=== PATIENT | male | born 1975 | race Caucasian/White ===

== ENCOUNTER 2021-01-08 11:36 | Emergency (ER) | payer OTHER ==
[~2021-01-08] VITALS: Ht 185.4 cm; Wt 108.0 kg
[~2021-01-08 11:36] MED LIST: CITA20TA6 PO; DOCU-109 PO; HYDR-2679 PO; LISI-130 PO; METH-38 PO
[2021-01-08] MEDS ORDERED: ORPHENADRINE CITRATE 60 MG/2 ML VIAL. IM ONE (12:30)
[2021-01-08] MEDS ORDERED: KETOROLAC 60 MG/2 ML VIAL. IM ONE (12:30)
[2021-01-08 12:31] VITALS: BP 156/93
--- NOTE | 2021-01-08 13:44 | RAD ---
Axial noncontrast CT imaging of the lumbar spine was obtained. Coronal and sagittal reformats are rudi ilable. INDICATION: Back pain down right leg for 2 weeks. COMPARISON: None. FINDINGS: There is no fracture. There is normal alignment of the lumbar spine. There are partially calcified di sc bulge is seen at L2-3 L3-for L4-5 and L5-S1. These all appear relatively broad-based and causes at least mild if not moderate foraminal stenosis as well as mild to moderate stenosis of the central ca nal. The partially visualized soft tissues are unremarkable in appearance. There is moderate distention ur inary bladder. IMPRESSION: 1. Partially calcified broad-based disc bulges at multiple levels are identified. Nonemergent MRI is recommended for further evaluation given the presence of radicular symptoms. Exposure: One or more of the following individualized dose reduction techniques were utilized for thi s examination: 1. Automated exposure control 2. Adjustment of the mA and/or kV according to patient size 3. Use of iterative reconstruction technique Electronically signed by: Mohsen English MD (01/08/2021 1:42 PM) [id number]
[2021-01-08] MEDS ORDERED: PRED20TA PO (13:58)
[2021-01-08] MEDS ORDERED: CYCL10TA2 PO (13:58)
--- NOTE | 2021-01-08 13:59 | ED.ADGEN ---
Past Medical History Past Medical History: Hypertension Past Surgical History: Other Additional Past Surgical Histo: LOWER BACK SX, 2015 Smoking Status: Former Smoker Alcohol Use: Occasionally General Adult EDM: Chief Complaint: BACK PAIN OR INJURY HPI: HPI: Patient is a 45 year old male who presents emergency department complaints of right-sided low back pain that radiates into his right leg with movement. He reports his back pain began about 2 weeks ago, he denies any injury or fall triggered the back pain. Patient reports prior back surgery several years ago by Dr. Farhta Leach. He denies any saddle anesthesia, or loss of bowel/bladder control. Patient denies any numbness, tingling, or decreased sensation of his lower extremities. He states that yesterday the pain was so severe it caused his right leg to give out. He currently rates the pain a 6 out of 10 on the pain scale, the pain increases to 8-10 out of pain with movement. He denies any abdominal pain, fever, dysuria, hematuria, or increased urinary frequency. Patient reports that he has had some difficulty initiating his stream of urine since the increase in the back pain. Review of Systems: Review of Systems: Complete ROS is negative unless otherwise noted in HPI. Current Medications: Current Medications Medications (Trade) Dose Ordered Sig/[facility] Start Time Stop Time Status Last Admin Dose Admin Ketorolac Tromethamine (Toradol Im) 60 mg 1X ONCE 01/08/21 12:30 01/08/21 12:35 DC 01/08/21 12:41 60 MG Orphenadrine Citrate (Norflex) 60 mg 1X ONCE 01/08/21 12:30 01/08/21 12:35 DC 01/08/21 12:41 60 MG Allergies: Allergies: Allergies Coded Allergies Type Severity Reaction Last Updated Verified No Known Drug Allergies 10/20/14 No Physical Exam: PE: See Above Constitutional: Well developed, well nourished, no acute distress, non-toxic appearance. [] HENT: Normocephalic, atraumatic, bilateral external ears normal, nose normal. [] Eyes: PERRLA, EOMI, conjunctiva normal, no discharge. [] Neck: Normal range of motion, no stridor. [] Cardiovascular:Heart rate regular rhythm Lungs & Thorax: Respirations even and unlabored, no retractions, no respiratory distress Back: No bony tenderness, crepitus, or step-off. Right lumbar paraspinal tenderness to palpation, increased pain with right straight leg lift, Skin: Warm, dry, no erythema, no rash. [] Extremities: No cyanosis, ROM intact, no edema. [] Neurologic: Alert and oriented X 3, normal motor, normal sensation, no focal deficits noted. [] Psychologic: Affect normal, judgement normal, mood normal. [] Current Patient Data: Vital Signs: Vital Signs Date Time Temp Pulse Resp B/P (MAP) Pulse Ox O2 Delivery O2 Flow Rate FiO2 01/08/21 12:31 98.0 68 12 156/93 (114) 98 Room Air 98.0 EKG: EKG: [] Heart Score: C/O Chest Pain: No Risk Scores: Score 0 - 3: 2.5% MACE over next 6 weeks - Discharge Home Score 4 - 6: 20.3% MACE over next 6 weeks - Admit for Clinical Observation Score 7 - 10: 72.7% MACE over next 6 weeks - Early Invasive Strategies Radiology/Procedures: Radiology/Procedures: PROCEDURE: CT LUMBAR SPINE WO CONTRAST Axial noncontrast CT imaging of the lumbar spine was obtained. Coronal and sagittal reformats are available. INDICATION: Back pain down right leg for 2 weeks. COMPARISON: None. FINDINGS: There is no fracture. There is normal alignment of the lumbar spine. There are partially calcified disc bulge is seen at L2-3 L3-for L4-5 and L5-S1. These all appear relatively broad-based and causes at least mild if not moderate foraminal stenosis as well as mild to moderate stenosis of the central canal. The partially visualized soft tissues are unremarkable in appearance. There is moderate distention urinary bladder. IMPRESSION: 1. Partially calcified broad-based disc bulges at multiple levels are identified. Nonemergent MRI is recommended for further evaluation given the presence of radicular symptoms. Exposure: One or more of the following individualized dose reduction techniques were utilized for this examination: 1. Automated exposure control 2. Adjustment of the mA and/or kV according to patient size 3. Use of iterative reconstruction technique Electronically signed by: Mohsen English MD (01/08/2021 1:42 PM) [id number] [] Course & Med Decision Making: Course & Med Decision Making Pertinent Labs and Imaging studies reviewed. (See chart for details) [] Dragon Disclaimer: Dragon Disclaimer: This electronic medical record was generated, in whole or in part, using a voice recognition dictation system. Departure Departure Impression: Primary Impression: Low back pain Additional Impression: Bulging discs Disposition: HOME / SELF CARE / HOMELESS Condition: STABLE Referrals: LUIS CARLOS WILLOUGHBY (PCP) FARHAT ROBERTS MD Patient Instructions: Back Pain, Adult, [id number] Additional Instructions: Fill the prescription(s) and use as directed. Apply heat or ice for to sore areas as needed for comfort. Activity as tolerated. Follow up with your primary care doctor or Dr. Roberts next week, return to the ER if symptoms worsen or you develop a fever. Scripts Cyclobenzaprine Hcl (CYCLOBENZAPRINE HCL) 10 Mg Tablet 1 TAB PO TID PRN for MUSCLE PAIN for 10 Days, #30 TAB 0 Refills Prov: COY LEONARD SEROLOGY TEACHER 01/08/21 Prednisone (PREDNISONE) 20 Mg Tablet 1 TAB PO UD for 12 Days, #15 TAB 2 tabs by mouth days 1,2,3 then 1.5 tabs by mouth days 4,5,6 then 1 tab by mouth days 7,8,9 then 0.5 tab by mouth day 10,11,12 Prov: COY LENOARD SEROLOGY TEACHER 01/08/21 Problem Qualifiers Primary Impression: Low back pain Chronicity: acute Back pain laterality: right Sciatica presence: with sciatica Sciatica laterality: sciatica of right side Qualified Codes: M54.41 - Lumbago with sciatica, right side COY LEONARD SEROLOGY TEACHER January 08, 2021 13:59
[2021-01-08] MEDS ORDERED: predniSONE 10 MG TABLET PO ONE (14:00)
[2021-01-08] MEDS ORDERED: predniSONE 10 MG TABLET ONE (14:00)
== END 2021-01-08 14:11 | disposition home or self-care (01) ==
LOC: ER 11:36
DX: M54.41 Lumbago with sciatica, right side (principal); I10 Essential (primary) hypertension; Z87.891 Personal history of nicotine dependence
CPT/HCPCS: 72131; 96372; 99284; J1885; J2360; J7512

== ENCOUNTER → 2021-02-15 | Outpatient (CLI) | payer OTHER ==
[~2021-02-15] MED LIST changes: +CYCL10TA2 PO; +HYDR-2761 PO; +METH-562 PO; +METO-247 PO; +PRED20TA PO
--- NOTE | 2021-02-15 13:27 | EKG ---
[facility] [address] [place] [address] Test Date: 2021-02-15 Test Time: 13:22:37 Pat Name: MICHAEL DIGGS Department: Room: Gender: M Wound Care Technician: : 1975 Requested By: MAREN ROBERTS Order Number: [id number] Reading MD: Levi Craig MD Measurements Intervals [place] Rate: 54 P: MN: QRS: 43 QRSD: 94 T: 46 QT: 408 QTc: 392 Interpretive Statements SINUS BRADYCARDIA Electronically Signed On 02-16-2021 10:49:06 CDT by Levi Craig MD
[2021-02-15 13:40] LABS: BASO # 0.1 x10^3/uL (0.0-0.2); BASO % 2 % (0-3); EOS # 0.3 x10^3/uL (0.0-0.7); EOS % 4 % (0-3); HEMATOCRIT 43.9 % (39.0-53.0); HEMOGLOBIN 15.5 g/dL (13.0-17.5); LYMPH # 1.9 x10^3/uL (1.0-4.8); LYMPH % 32 % (24-48); MEAN CORPUSCULAR HEMOGLOBIN 32 pg (25-35); MEAN CORPUSCULAR HGB CONC 35 g/dL (31-37); MEAN CORPUSCULAR VOLUME 90 fL (79-100); MONO # 0.7 x10^3/uL (0.0-1.1); MONO % 11 % (0-9); NEUT # 3.1 x10^3/uL (1.8-7.7); NEUT % 51 % (31-73); PLATELET COUNT 233 x10^3/uL (140-400); RED BLOOD COUNT 4.87 x10^6/uL (4.30-5.70); RED CELL DISTRIBUTION WIDTH 13.5 % (11.5-14.5); WHITE BLOOD COUNT 6.1 x10^3/uL (4.0-11.0)
[2021-02-15 13:43] LABS: ALBUMIN 4.1 g/dL (3.4-5.0); ALBUMIN/GLOBULIN RATIO 1.2 (1.0-1.7); CREATININE 0.8 mg/dL (0.7-1.3); TOTAL BILIRUBIN 0.6 mg/dL (0.2-1.0); TOTAL PROTEIN 7.4 g/dL (6.4-8.2)
== END ==
LOC: SURGPAT 12:17
PROVIDERS: ATTEND Neurological Surgery
DX: Z01.818 Encounter for other preprocedural examination (principal); M51.16 Intervertebral disc disorders with radiculopathy, lumbar region; R00.1 Bradycardia, unspecified
CPT/HCPCS: 36415; 80053; 85025; 87641; 93005

== ENCOUNTER 2021-02-19 07:25 | Day surgery (SDC) | payer OTHER ==
[2021-02-15 12:55] VITALS: BP 148/85
--- NOTE | 2021-02-18 16:32 | PREOP HP ---
DATE OF SERVICE: 02/19/2021 HISTORY OF PRESENT ILLNESS: The patient is a pleasant 45-year-old. He is having problems with neck and left arm pain and had neural foraminal narrowing on the left at C6-7. I referred him for cervical epidural steroid injections, but because of his vaccination, this was delayed and by the time he went to have the injection, the pain had improved markedly. He says he continues to notice spasms in his left triceps, but there is no significant pain or weakness. On 01/08, he said that he developed severe pain in his lower back and right leg to the point he went to the Emergency Room. He said that the problem started spontaneously. He was given steroids and over time, the pain has improved to a degree. However, he notes significant weakness in his right leg. He said that yesterday while barbecuing, his right quadriceps gave out and he fell. He notes weakness in his right quadriceps along with numbness in the right anterior thigh and anterior leg. He is not able to work because of leg weakness. CURRENT MEDICATIONS: Lisinopril, [place]. PAST MEDICAL HISTORY: Hypertension. PAST SURGICAL HISTORY: Lumbar microsurgery at L3-4 on the left in 2015 and bariatric surgery in 2019. FAMILY HISTORY: Cancer, coronary artery disease, hypertension, diabetes. SOCIAL HISTORY: Employed at [employer]. , nonsmoker, drinks alcohol 1-2 times per week. ALLERGIES: No known drug allergies. REVIEW OF SYSTEMS: A 12-point review of systems was performed and is noncontributory except that mentioned above. PHYSICAL EXAMINATION: GENERAL: Alert, pleasant, in no acute distress. HEENT: Head normocephalic, atraumatic. SKIN: Warm and dry. Well-healed lumbar incision. MUSCULOSKELETAL: Lumbar paraspinal muscle bulk is normal, restricted range of motion of the lumbar spine, [id number] tenderness of the lower lumbar spine with palpation, normal range of motion of the lower extremities bilaterally. EXTREMITIES: No clubbing, cyanosis or edema. NEUROLOGIC: Alert and oriented x 3. Normal recent and remote memory. Strength is 5/5 in the lower extremities except for right quadriceps which is 4/5 and right hip flexor which was 4/5. Sensory was intact to light touch in the lower extremities bilaterally except for decreased sensation with light touch involving the distal anterior thigh, knee and anterior leg on the right. Reflexes were present and symmetric in the lower extremities except for an absent right knee jerk. Negative straight leg raising bilaterally. Normal gait. IMAGING: I reviewed a lumbar MRI scan. On that study, the principal abnormality is a large disk herniation at L3-4 on the right side, which is in the right lateral recess. The disk extrusion extends inferiorly along the medial side of the pedicle extending all the way down to the neural foramen and deviating the right L3 nerve root markedly. At L2-3, there is a disk protrusion, which is central and extends eccentrically toward the right side. There is flattening of the ventral thecal sac. However, I do not see evidence of compression. ASSESSMENT AND PLAN: The patient has a large disk herniation with an inferior extrusion at L3-4 on the right along with quadriceps weakness. He is unable to work. I recommended lumbar microsurgery at L3-4 on the right to decompress the dura and the nerve root and remove the large disk herniation. I spoke with him about this in detail. He understands the rationale for surgery and the risk as well as the expected postoperative course. I went through the technique of the surgery. I discussed this with him and his . They understand and would like to proceed. YANICK/LUBNA/FIDELIA DR: Gretchen TID: [id number]
[~2021-02-19] VITALS: Ht 185.4 cm; Wt 108.0 kg
[~2021-02-19 07:25] MED LIST changes: +BUPIVACAINE-EPI 0.5%-1:200000 MPF 30 ML VIAL. ONE; +GELATIN SPONGE SIZE 100. ONE; -HYDR-2761 PO; +HYDROmorphone 2 MG/ML VIAL IVP PRN; +IV RINGERS,LACTATED 1000ML 1,000 ML IV SCH; +KETOROLAC 60 MG/2 ML VIAL. ONE; +LIDOCAINE 2% PF 5 ML VIAL. ONE; -METH-562 PO; +MIDAZOLAM HCL/PF 2 MG/2 ML VIAL. ONE; +MORPHINE SULFATE 2 MG/ML VIAL. IVP PRN; +PROCHLORPERAZINE 10 MG/2 ML VIAL. IVP PRN; +PROPOFOL 10 MG/ML (20ML) VIAL. IV ONE; +PROPOFOL 100 ML IV ONE; +REMIFENTANIL 2 MG VIAL. IV ONE; +ROCURONIUM 50 MG/5 ML VIAL. ONE; +THROMBIN TOPICAL 20,000 UNIT SPRAY.SYRN KIT TP ONE; +fentaNYL PF VIAL 100 MCG/2 ML VIAL IVP PRN; +fentaNYL PF VIAL 100 MCG/2 ML VIAL ONE
[2021-02-19 07:46] VITALS: BP 165/84
[2021-02-19] MEDS ORDERED: DEXAMETHASONE SOD PHOS 4 MG/ML VIAL ONE (09:31)
[2021-02-19] MEDS ORDERED: ONDANSETRON PF 4 MG/2 ML VIAL. ONE (09:31)
[2021-02-19] MEDS ORDERED: SEVOFLURANE > 120 MINUTES. IH ONE (09:31)
[2021-02-19] MEDS ORDERED: NEOSTIGMINE METHYLSULFATE 5 MG/5 ML SYRINGE. ONE (09:32)
[2021-02-19] MEDS ORDERED: GLYCOPYRROLATE 1 MG/5 ML VIAL. ONE (09:32)
[2021-02-19] MEDS ORDERED: PHENYLEPHRINE 10 MG/ML VIAL. ONE (10:16)
[2021-02-19] MEDS ORDERED: fentaNYL PF VIAL 100 MCG/2 ML VIAL ONE (11:29)
--- NOTE | 2021-02-19 11:44 | OP ---
DATE OF SURGERY: 02/19/2021 PREOPERATIVE DIAGNOSIS: Recurrent herniated lumbar disc, L3-L4, right with severe right lumbar radiculopathy. POSTOPERATIVE DIAGNOSIS: Recurrent herniated lumbar disc, L3-L4, right with severe right lumbar radiculopathy. OPERATION PERFORMED: Hemilaminotomy and microdiscectomy L3-L4, right reoperation. Operation was done with EMG monitoring, SSEP monitoring, fluoroscopy, microscopic dissection. SURGEON: Farhat Paige M.D. OPERATIVE INDICATION: The patient is a very pleasant 45-year-old who in the past had undergone surgery at L3-L4 for herniated disc and did very well. He then developed recurrent pain, which has failed to resolve with conservative measures. On imaging studies, there was a large disc herniation at L3-L4 on the right with a large inferior fragment. I recommended lumbar microsurgery. I spoke with him about the surgery, the risks, technique and expected postoperative course, and he wished to go ahead. In addition to the pain, he had leg weakness on the right side. SPECIMEN: Disc and decompression. DESCRIPTION OF PROCEDURE: Following general endotracheal anesthesia, the patient was positioned prone on the Zackery table. His lumbar region was prepped and draped in standard fashion. JUAN M hose and AV impulse boots were applied for DVT prophylaxis. The microscope was draped, fluoroscopy was draped and brought in the field. Monitoring was established. Ancef 2 grams was given less than one hour prior to initiation of the surgery. Using fluoroscopic guidance and screws, incision was reopened. I did carry this slightly farther superiorly directly over the disc space dissected down through skin and subcutaneous tissue, reflected the paraspinal muscles and placed a Dale microdisk retractor. I brought in the microscope and the remainder of surgery was done with microscope using microscopic technique. I burred down a generous hemilaminotomy and then trimmed away thickened ligamentum flavum. I followed the exiting root considered for a considerable distance around the pedicle and into the exit/foramen at L3-4 and beneath the root, I could visualize the extruded disc fragment. I gently grasped the disc fragment with micropituitaries over the midportion of the pedicle and gently teased and removed a very large piece of extruded disc and it was removed completely. I then worked inferiorly and continued to tease, remove this large disc herniation. This was accomplished, the nerve root was quite free. I did enter the disc space and performed discectomy with pituitary rongeurs. I explored carefully. There were no retained fragments. I felt the surgery went very well, as far as removal of the disc, decompression of the root. I irrigated copiously. Hemostasis was excellent. I removed the retractor, obtained hemostasis in the muscle. Again irrigated and then I closed the wound with absorbable sutures. The skin was closed with a 4-0 subcuticular stitch. The surgery went very well. MARIO/MAICO DR: Sonja TID: [id number] DEJAH
[2021-02-19] MEDS ORDERED: HYDR-2761 PO (11:51)
[2021-02-19] MEDS ORDERED: DOCU-109 PO (11:51)
[2021-02-19] MEDS ORDERED: METH-562 PO (11:51)
--- NOTE | 2021-02-19 11:52 | DISCH ---
DISCHARGE INSTRUCTIONS Condition on Discharge Condition on Discharge: Stable Activity After Discharge Activity Instructions for Disc: Activity as tolerated, Avoid exertion Other activity instructions: no driving for a week Bathing Instructions: Shower-keep dressing dry, No Tub Bath until see Lifting Instructions after Dis: No heavy lifting, No pulling or pushing, Do not lift >10 pounds Diet after Discharge Diet after Discharge: Regular Additional Diet Restrictions: resume home diet Wound Incision Care Wound/Incision Care: Ice to area for comfort Other wound/incision instructi: may rmove dressing in 48 hours if dry then may shower, no soaking Contacting the after DC Call your doctor for: Concerns you may have Follow-Up Follow up with: Dr. Roberts's nurse in 2 weeks [phone] MAREN ROBERTS MD Feb 19, 2021 11:52
[2021-02-19 12:17] VITALS: BP 151/81
[2021-02-19] MEDS ORDERED: HYDROcodone/APAP 5/325MG 1 TAB TABLET ONE (12:19)
[2021-02-19] MEDS ORDERED: HYDROcodone/APAP 5/325MG 1 TAB TABLET PO ONE (12:30)
--- NOTE | 2021-02-22 19:18 | PATHOLOGY ---
[facility] Accession Number: [id number] . 01 Material submitted: . vertebral column - LUMBAR DISC AND DECOMPRESSION. Modifiers: LUMBAR . 01 Clinical history: . LUMBAR HERNIATED DISC WITH RADICULOPATHY LUMBAR MICRODISCECTOMY L3-4 RE-OPERATION . . 02 Diagnosis: Segments of fibrocartilaginous, adipose, and skeletal muscle tissue and bone, lumbar disc and decompression: - Degenerative changes of fibrocartilaginous tissue. (JPM:perico; 02/22/2021) S 02/22/2021 1809 Local . 02 Comment: There is no evidence of an acute inflammatory process or malignancy. (JPM:perico; 02/22/2021) . 02 Electronically signed: . Vasyl Lazaro MD, Pathologist NPI- [id number] . 01 Gross description: . Received in formalin labeled "Sidney Saldana, lumbar disc and decompression" are multiple irregular, blevins brown fragments of soft tissue and bone measuring in aggregate 5.4 x 3.1 x 1.7 cm. The specimen is serially sectioned to reveal a blevins-brown focally gritty cut surface. Photocomposing Machine Operator section of the specimen are submitted without decalcification in cassette A1.([facility]; 02/20/2021) GZA/GZA 02/20/2021 1048 Local . 02 Pathologist provided ICD-10: M51.36 . 02 CPT . 070373, [id number] Specimen Comment: A courtesy copy of this report has been sent to [phone], [phone] Specimen Comment: [id number] Specimen Comment: Report sent to / DR WILLOUGHBY Specimen Comment: A duplicate report has been generated due to demographic updates. Performed at: [address] [facility] [address], [place] [id number] MD Junito Pacheco MD Phone: [phone] Performed at: 02 [facility] [address] [place], [place] [id number] MD Vasyl Lazaro MD Phone: [phone]
== END 2021-02-19 13:22 | disposition home or self-care (01) ==
LOC: SURG 07:25
PROVIDERS: ATTEND Neurological Surgery
DX: M51.16 Intervertebral disc disorders with radiculopathy, lumbar region (principal); I10 Essential (primary) hypertension; Z79.899 Other long term (current) drug therapy; Z98.890 Other specified postprocedural states; Z72.89 Other problems related to lifestyle; Z87.891 Personal history of nicotine dependence
CPT/HCPCS: 63042; 88304; 88311; 97116; 97162; 97530; A4364; A4930; A6254; A6258; J0690; J1100; J1885; J2370; J2405; J2704; J2710; J3010; J3490; 76000; A4222; J2250

== ENCOUNTER → 2021-12-21 | Outpatient (CLI) | payer OTHER ==
[~2021-12-21] MED LIST changes: -BUPIVACAINE-EPI 0.5%-1:200000 MPF 30 ML VIAL. ONE; +CYCL10TA19 PO; -CYCL10TA2 PO; -GELATIN SPONGE SIZE 100. ONE; +HYDR-2761 PO; -HYDROmorphone 2 MG/ML VIAL IVP PRN; -IV RINGERS,LACTATED 1000ML 1,000 ML IV SCH; -KETOROLAC 60 MG/2 ML VIAL. ONE; -LIDOCAINE 2% PF 5 ML VIAL. ONE; +METH-562 PO; +METH4TAB2 PO; -MIDAZOLAM HCL/PF 2 MG/2 ML VIAL. ONE; -MORPHINE SULFATE 2 MG/ML VIAL. IVP PRN; +OXYC1TAB15 PO; -PROCHLORPERAZINE 10 MG/2 ML VIAL. IVP PRN; -PROPOFOL 10 MG/ML (20ML) VIAL. IV ONE; -PROPOFOL 100 ML IV ONE; -REMIFENTANIL 2 MG VIAL. IV ONE; -ROCURONIUM 50 MG/5 ML VIAL. ONE; -THROMBIN TOPICAL 20,000 UNIT SPRAY.SYRN KIT TP ONE; -fentaNYL PF VIAL 100 MCG/2 ML VIAL IVP PRN; -fentaNYL PF VIAL 100 MCG/2 ML VIAL ONE
--- NOTE | 2021-12-21 15:49 | PDOC1 ---
INITIAL PAIN CONSULT DATE OF SERVICE: DOS: DATE: 12/21/21 TIME: 15:42 CHIEF COMPLAINT: Chief Complaint: Neck and left upper extremity pain HISTORY OF PRESENT ILLNESS: 46-year-old male presents with history of pain base the neck left upper extremity for about 3months already relates a story about a year ago he had similar symptoms but they got better with some physical therapy and stretching and strengthening patient reports he has been doing the physical therapy now recently with stretching and strengthening exercises as well on his own but without significant reduction in pain patient reports the pain is increased in the base of the neck left shoulder left scapular region also into the posterior deltoid anterior deltoid lateral deltoid, into the biceps triceps and into the forearm and into the thumb and first finger with some numbness and tingling in the hand patient reports some fatigability of the left upper extremity has not been dropping items or had any complete motor loss but has significant fatigability with left upper extremity with fine motor movements as well as reaching weightbearing repetitive motions reaching over his head with his left arm and reaching forward with weightbearing as well. Patient reports is tingling and numb in the hand on the left side sharp stabbing and constant in the base of the neck and shoulder reports it wakes him to sleep about 4 times a night does not affect his bowel bladder control or ability to walk again he has been doing physical therapy stretching strength exercises as well as taking hydrocodone also ibuprofen and Tylenol without significant reduction in pain. 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 Patient have an MRI scan of the cervical spine showing C5-6 and moderate diffuse posterior disc bulge slightly larger to the right of midline contact and minimally effacing the ventral cord C6-7 shows moderate degenerative loss of disc height large broad-based left lateral recess disc protrusion contacting the ventral cord and causing mild appearing deflection or effacement of the ventral cord and left lateral recess is probably narrowed in the most medial aspect of the left foramen and mildly effaced. Patient reports no loss of function but again significant fatigability with left upper extremity with any repetitive motion. PAST MEDICAL HISTORY: PMH: Hypertension PREVIOUS SURGERIES: Past Surgical Hx: Lumbar laminectomy x2 CURRENT MEDICATIONS: Current Meds: Active Scripts Medications Dose Route/Sig Max Daily Dose Days Date Category Citalopram Hbr (Citalopram Hydrobromide) 20 Mg Tablet 1 Tab PO DAILY 12/21/21 Reported Hydrocodone-Apap 5-325 (Hydrocodone Bit/Acetaminophen) 1 Tab Tablet 1 Tab PO PRN Q6HRS PRN 02/19/21 Rx Metoprolol Succinate ( Xl ) (Metoprolol Succinate) 100 Mg Tab.er.24h 1 Tab PO DAILY 02/15/21 Reported ALLERGIES; Allergies: Coded Allergies: No Known Drug Allergies (Unverified , 02/19/21) FAMILY HISTORY: Family Hx: Cancers SOCIAL HISTORY: Social Hx: Patient drinks alcohol about 2 drinks twice a week does not smoke not use any illegal illicit or recreational drugs is lives with his spouse has 3 children live at home lives locally and works for the [employer]. REVIEW OF SYSTEMS: ROS: Positive for those items mentioned in history of present illness, all systems are reviewed, otherwise negative ,and are complete full and well-documented on patient's chart. PHYSICAL EXAM: VS: Blood pressure is 164/107 pulse 76 respirations 18 temperature is 98.7 F height is 6 feet 1 inch weight is 247 pounds. PE: PHYSICAL EXAMINATION: GENERAL: The patient is awake, alert, oriented, appropriate, very pleasant in demeanor HEENT: Shows normocephalic, atraumatic. Extraocular movements are intact and symmetrical. Oral cavity: Mucous membranes moist and pink. Dentition is intact. NECK: Shows anterior throat supple without palpable lymphadenopathy noted. Swallow reflex symmetrical. CHEST: Shows normal on inspection. Breath sounds are clear bilaterally, no rales rhonchi or wheezes auscultated. HEART: Shows S1, S2 clear. No murmurs auscultated. ABDOMEN: Soft, nontender, nondistended. No palpable organomegaly is noted. BACK: Shows spine grossly in the midline. Normal-appearing cervical lordotic curvature. Cervical paraspinous muscles show symmetrical inspection, on palpation some moderate tenderness diffusely bilaterally diffusely without si gnificant radiation. Patient shows good rotation of motion cervical spine with some moderate tenderness with left lateral rotation and significant tenderness with extension but not with forward flexion which likely decreases the pain. There is slightly increased thoracic kyphosis, some minor flattening of the lumbar lordotic curvature. EXTREMITIES: Upper extremities show deep tendon reflexes 2+ in the patellar and tendo calcaneus tendons. Motor exam is 5 on a scale of 5 with right dorsiflexion, extension, quadriceps and hamstring flexion and 4/5 on the left. Peripheral pulses are 2 posterior tibial. No peripheral edema is noted bilaterally. Upper extremities are warm and dry to touch, equal in color and appearance. Shoulder shrug strong intact without loss of strength on resistance as is abduction of the shoulder 90 degrees without loss strength bilaterally. SKIN: Shows warm and dry, good turgor. No edema. No sores, rashes or bruising throughout. IMPRESSION: Impression: 46-year-old male with long history of pain base of neck left upper extremity worse over the past 3 months or so and radicular fashion following a C6-7 dermatomal distribution on the left. MRI scan cervical spine as noted hypertension as well as heat and cold application as currently. Plan: Options were discussed with the patient including serve medical managements continued physical therapies and interventional techniques. Patient like to pursue interventional techniques. We discussed a cervical epidural steroid injection using descriptions as well as anatomical models to describe the procedure. Patient will wait for preauthorization with his insurance provider once obtained. We will have patient return for translaminar approach C6-7 level cervical epidural steroid injection with fluoroscopic guidance in the meantime patient continue with stretching strength exercises oral analgesics as well as heat and cold application as currently. RADHA MAGALLANES MD Dec 21, 2021 15:49
== END | disposition home or self-care (01) ==
LOC: PNCL 14:26
PROVIDERS: ATTEND Anesthesiology
DX: M79.602 Pain in left arm (principal); M54.2 Cervicalgia; I10 Essential (primary) hypertension; Z87.891 Personal history of nicotine dependence; Z79.899 Other long term (current) drug therapy; Z98.890 Other specified postprocedural states; Z72.89 Other problems related to lifestyle
CPT/HCPCS: G0463

== ENCOUNTER 2021-12-28 10:50 | Emergency (ER) | payer OTHER ==
[~2021-12-28] VITALS: Ht 185.4 cm; Wt 109.2 kg
[~2021-12-28 10:50] MED LIST changes: -METH4TAB2 PO; -OXYC1TAB15 PO
[2021-12-28] MEDS ORDERED: MORPHINE SULFATE 4 MG/ML INJ. IM ONE (11:45)
[2021-12-28] MEDS ORDERED: predniSONE 20 MG TABLET PO ONE (11:45)
[2021-12-28] MEDS ORDERED: ONDANSETRON ODT 4 MG TAB.RAPDIS. PO ONE (11:45)
[2021-12-28] MEDS ORDERED: ORPHENADRINE CITRATE 60 MG/2 ML VIAL. IM ONE (11:45)
[2021-12-28] MEDS ORDERED: CYCL10TA19 PO (11:50)
[2021-12-28] MEDS ORDERED: METH4TAB2 PO (11:50)
[2021-12-28] MEDS ORDERED: OXYC1TAB15 PO (11:50)
--- NOTE | 2021-12-28 11:52 | ED.ADGEN ---
Past Medical History Past Medical History: Hypertension Past Surgical History: Other Additional Past Surgical Histo: LOWER BACK SX, 2015 Smoking Status: Former Smoker Alcohol Use: Occasionally General Adult EDM: Chief Complaint: NECK PAIN HPI: HPI: Patient is a 46-year-old male who arrives ambulatory to the emergency department complaining of neck pain. Patient has a longstanding history of neck pain and had an MRI 3 weeks ago. He has been working with neurosurgery with respect to his ongoing neck pain as he has multiple herniated disks in his neck. Patient states he was on his way to his first pain management appointment today and opted for ED evaluation because when the patient stood up last night he felt numbness and tingling of his left upper extremity. Patient states despite that he has maintained motor of his left upper extremity. Furthermore he denies any involvement of his face or lower extremity. Additionally denies any history of fever or trauma. He is awake, alert and uncomfortable appearing Review of Systems: Review of Systems: Constitutional: Denies fever or chills. [] Eyes: Denies change in visual acuity. [] HENT: Denies nasal congestion or sore throat. [] Respiratory: Denies cough or shortness of breath. [] Cardiovascular: Denies chest pain or edema. [] GI: Denies abdominal pain, nausea, vomiting, bloody stools or diarrhea. [] : Denies dysuria. [] Musculoskeletal: Denies back pain or joint pain. [] Integument: Denies rash. [] Neurologic: Denies headache, focal weakness or sensory changes. [] Endocrine: Denies polyuria or polydipsia. [] Lymphatic: Denies swollen glands. [] Psychiatric: Denies depression or anxiety. [] Current Medications: Current Medications Medications (Trade) Dose Ordered Sig/Jose Start Time Stop Time Status Last Admin Dose Admin Morphine Sulfate (Morphine Sulfate) 4 mg 1X ONCE 12/28/21 11:45 12/28/21 11:46 DC Ondansetron HCl (Zofran Odt) 4 mg 1X ONCE 12/28/21 11:45 12/28/21 11:46 DC Orphenadrine Citrate (Norflex) 60 mg 1X ONCE 12/28/21 11:45 12/28/21 11:46 DC Prednisone (Prednisone) 60 mg 1X ONCE 12/28/21 11:45 12/28/21 11:46 DC Allergies: Allergies: Allergies Coded Allergies Type Severity Reaction Last Updated Verified No Known Drug Allergies 12/28/21 No Physical Exam: PE: Constitutional: Well developed, well nourished, no acute distress, non-toxic appearance. [] HENT: Normocephalic, atraumatic, bilateral external ears normal, oropharynx m oist, no oral exudates, nose normal. [] Eyes: PERRLA, EOMI, conjunctiva normal, no discharge. [] Neck: Tenderness palpation of the paraspinal musculature at the left side of the neck. Patient has normal range of motion however he does so with considerable discomfort. [] Cardiovascular:Heart rate regular rhythm, no murmur [] Lungs & Thorax: Bilateral breath sounds clear to auscultation [] Abdomen: Bowel sounds normal, soft, no tenderness, no masses, no pulsatile masses. [] Skin: Warm, dry, no erythema, no rash. [] Back: No tenderness, no CVA tenderness. [] Extremities: No tenderness, no cyanosis, no clubbing, ROM intact, no edema. [] Neurologic: Alert and oriented X 3, normal motor function, normal sensory function, no focal deficits noted. [] Psychologic: Affect normal, judgement normal, mood normal. [] Current Patient Data: Vital Signs: Vital Signs Date Time Temp Pulse Resp B/P (MAP) Pulse Ox O2 Delivery O2 Flow Rate FiO2 12/28/21 11:15 98.4 116 20 149/93 (111) 99 98.4 EKG: EKG: [] Heart Score: C/O Chest Pain: No Risk Factors: Risk Factors: DM, Current or recent (<one month) smoker, HTN, HLP, family history of CAD, obesity. Risk Scores: Score 0 - 3: 2.5% MACE over next 6 weeks - Discharge Home Score 4 - 6: 20.3% MACE over next 6 weeks - Admit for Clinical Observation Score 7 - 10: 72.7% MACE over next 6 weeks - Early Invasive Strategies Radiology/Procedures: Radiology/Procedures: [] Course & Med Decision Making: Course & Med Decision Making Pertinent Labs and Imaging studies reviewed. (See chart for details) The patient remains awake, alert and in no acute distress. The patient has been provided with IM injections for his pain as well as prescriptions as he is not taking anything currently. I have advised that he speak with Dr. Leach with respect to this development and consider additional follow-up with him as well as pain management. Should the patient develop any acute inability to move his left upper extremity or neurological change otherwise. He has been advised to return to the emergency department. The patient understands and has agreed to do so. He is nontoxic-appearing and stable for discharge peer [] Maddie Disclaimer: Maddie Disclaimer: This electronic medical record was generated, in whole or in part, using a voice recognition dictation system. Departure Departure Impression: Primary Impression: Bulging discs Additional Impressions: Acute neck pain Cervical radiculopathy Disposition: HOME / SELF CARE / HOMELESS Condition: STABLE Referrals: LUIS CARLOS WILLOUGHBY (PCP) Patient Instructions: Cervical Radiculopathy Scripts Oxycodone/Apap 5-325 (PERCOCET 5-325 MG TABLET ) 1 Each Tablet 1 TAB PO PRN Q6HRS PRN for PAIN, #12 TAB 0 Refills Prov: MEGHA PUGH DO 12/28/21 Cyclobenzaprine Hcl (CYCLOBENZAPRINE HCL) 10 Mg Tablet 1 TAB PO TID, #30 TAB Prov: MEGHA PUGH DO 12/28/21 Methylprednisolone (MEDROL) 4 Mg Tab.ds.pk 1 PKG PO UD for inflammation, #1 PKG Prov: MEGHA PUGH DO 12/28/21 Problem Qualifiers MEGHA PUGH DO Dec 28, 2021 11:52
[2021-12-28 12:30] VITALS: BP 138/74
== END 2021-12-28 12:33 | disposition home or self-care (01) ==
LOC: ER 10:50
DX: M54.12 Radiculopathy, cervical region (principal); M50.80 Other cervical disc disorders, unspecified cervical region; I10 Essential (primary) hypertension; Z87.891 Personal history of nicotine dependence
CPT/HCPCS: 96372; 99284; J2270; J2360; J7512

== ENCOUNTER → 2021-12-29 | Outpatient (CLI) | payer OTHER ==
[2021-12-28 12:30] VITALS: BP 138/74
[~2021-12-29] MED LIST changes: +DEXAMETHASONE PRES.FREE 10 MG/ML VIAL. ONE; +IOHEXOL 180 MG/ML 10 ML VIAL. ONE; +METH4TAB2 PO; +OXYC1TAB15 PO
--- NOTE | 2021-12-29 13:18 | PDOC4 ---
Procedure Note: ICD 10 Code: ICD 10 Code: M54.16 M5 0.30 M48.02 Procedure Note: Patient was consented for cervical epidural steroid injection with fluoroscopic guidance. Risks were discussed including but not limited to: Bleeding, infection, possibility of epidural hematoma and subsequent neurological compromise, dural puncture, headaches, spinal cord and/or nerve damage, side effects of steroid medication, and poor results regarding pain control. Patient understands and wished to proceed. Procedure cervical epidural steroid injection at the C6-7 level, using local anesthetic under sterile prep and drape using C-arm fluoroscopic guidance under local anesthesia medications injected ; 20 mg dexamethasone +5 mL normal saline and 2 mL contrast; condition at discharge is stable patient tolerated procedure well. and had no complications RADHA MAGALLANES MD Dec 29, 2021 13:18
--- NOTE | 2021-12-29 13:18 | PDOC ---
Progress Note - Pain Clinic Date of Service: DOS: DATE: 12/29/21 TIME: 13:13 Diagnosis: Dx: Cervical radiculopathy with cervical degenerative disease and cervical spinal stenosis History or Present Illness: HPI: 46-year-old male returns complaining of pain base the neck and left upper extremity shoulder left arm upper arm, and forearm with the pain in the hand especially in the second and third fingers patient report is numbness and tingling in the left hand worse with repetitive motions with reaching over his head with his left arm worse with reaching forward and weightbearing patient reports is a 10 on scale 10 is worse over the past week 7 on average 5 its least and is a 5 today patient scribes aching sharp dull tight shooting tingling cramping stabbing can be constant severe with activity patient reports it was severe enough that he went to the emergency department yesterday to have it evaluated was given a injection of pain medication and was sent home with the pain was was decreasing when he left. Patient reports difficulty to sleep especially with sleep on his left side keeps him awake frequently throughout the night patient reports no loss of motor function fatigability and weakness in the left upper extremity and left hand especially with fine motor movements. Physical Exam: VS: Blood pressure is 155/93 pulse 60 respirations are 20 temperature is 98.2 F weight is 240 pounds. PE: PHYSICAL EXAMINATION: GENERAL: The patient is awake, alert, oriented, appropriate, very pleasant in demeanor HEENT: Shows normocephalic, atraumatic. Extraocular movements are intact and symmetrical. Oral cavity: Mucous membranes moist and pink. Dentition is intact. NECK: Shows anterior throat supple without palpable lymphadenopathy noted. Swallow reflex symmetrical. CHEST: Shows normal on inspection. Breath sounds are clear bilaterally, distant but no rales rhonchi or wheezes auscultated. HEART: Shows S1, S2 clear. No murmurs auscultated. ABDOMEN: Soft, nontender, nondistended. No palpable organomegaly is noted. BACK: Shows spine grossly in the midline. Normal-appearing cervical lordotic curvature. Cervical paraspinous muscles show symmetrical inspection, palpation some moderate tenderness diffusely bilaterally diffusely without significant radiation. Patient shows good rotation motion cervical spine with lateral as well as extension flexion some moderate tenderness with far left lateral rotation as well as extension but not with forward flexion. There is slightly increased thoracic kyphosis, some minor flattening of the lumbar lordotic curvature. EXTREMITIES: Upper extremities show deep tendon reflexes 2+ in the biceps and triceps tendons. Motor exam is 5 on a scale of 5 with right rib, biceps and triceps flexion and 4/5 on the left. Peripheral pulses are 2+ radial. No peripheral edema is noted bilaterally. Upper extremities are warm and dry to to uch, equal in color and appearance. Shoulder shrug is strong and intact without loss of strength on resistance bilaterally. SKIN: Shows warm and dry, good turgor. No edema. No sores, rashes or bruising throughout. Procedure: Procedure: Options discussed with patient. Patient's old chart was reviewed his his current medication regimen updated current review of systems updated today as well. We will proceed with a cervical epidural steroid injection today with fluoroscopic guidance. Risks were discussed including but not limited to: Bleeding, infection, possibility of epidural hematoma and subsequent neurological compromise, dural puncture, headaches, spinal cord and/or nerve damage, side effects of steroid medication, and poor results regarding pain control. Patient understands and wished to proceed. Patient will return to the clinic in approximate 2 weeks for follow-up, was counseled as to return appointment, activity level, and side effects to be aware of. Medication Injected: Med Injected: Procedure cervical epidural steroid injection at the C6-7 level, using local anesthetic under sterile prep and drape using C-arm fluoroscopic guidance under local anesthesia medications injected ; 20 mg dexamethasone +5 mL normal saline and 2 mL contrast; condition at discharge is stable patient tolerated procedure well. and had no complications Condition at Discharge: Condition at Discharge: Condition at discharge is stable, paced tolerated the procedure well and had no complications. RADHA MAGALLANES MD Dec 29, 2021 13:18
== END | disposition home or self-care (01) ==
LOC: PNCL 11:08
PROVIDERS: ATTEND Anesthesiology
DX: M50.10 Cervical disc disorder with radiculopathy, unspecified cervical region (principal); M48.02 Spinal stenosis, cervical region; M54.12 Radiculopathy, cervical region; I10 Essential (primary) hypertension; Z79.899 Other long term (current) drug therapy; Z98.890 Other specified postprocedural states
CPT/HCPCS: 62321; J1100; Q9965